=== PATIENT | female | born 1980 | race American Indian/Alaskan Native ===

== ENCOUNTER 2018-11-06 08:00 | Outpatient (CLI) | payer OTHER ==
[2018-11-06] MEDS ORDERED: XYLOCAINE TOPICAL 4% TP ONE (08:25)
== END 2018-11-06 08:01 | disposition home or self-care (01) ==
LOC: WOUND 08:00
PROVIDERS: ATTEND Surgery
DX: L97.812 Non-pressure chronic ulcer of other part of right lower leg with fat layer exposed (principal); I87.2 Venous insufficiency (chronic) (peripheral); I10 Essential (primary) hypertension
CPT/HCPCS: 11042; G0463; 99203

== ENCOUNTER 2018-11-13 07:58 | Outpatient (CLI) | payer OTHER | END 2018-11-13 07:59 | disposition home or self-care (01) | LOC: WOUND 07:58 | PROVIDERS: ATTEND Surgery | DX: L97.812 Non-pressure chronic ulcer of other part of right lower leg with fat layer exposed (principal); I10 Essential (primary) hypertension; I87.8 Other specified disorders of veins ==

== ENCOUNTER 2018-11-20 07:59 | Outpatient (CLI) | payer OTHER | END 2018-11-20 08:00 | disposition home or self-care (01) | LOC: WOUND 07:59 | PROVIDERS: ATTEND Surgery | DX: L97.812 Non-pressure chronic ulcer of other part of right lower leg with fat layer exposed (principal); I87.2 Venous insufficiency (chronic) (peripheral); I10 Essential (primary) hypertension ==

== ENCOUNTER 2018-11-27 08:06 | Outpatient (CLI) | payer OTHER ==
[2018-11-27] MEDS ORDERED: XYLOCAINE TOPICAL 4% TP ONE (09:00)
== END 2018-11-27 08:07 | disposition home or self-care (01) ==
LOC: WOUND 08:06
PROVIDERS: ATTEND Surgery
DX: L97.812 Non-pressure chronic ulcer of other part of right lower leg with fat layer exposed (principal); I87.2 Venous insufficiency (chronic) (peripheral); I10 Essential (primary) hypertension

== ENCOUNTER 2018-12-04 08:02 | Outpatient (CLI) | payer OTHER ==
[2018-12-04] MEDS ORDERED: XYLOCAINE TOPICAL 4% TP ONE (09:00)
== END 2018-12-04 08:03 | disposition home or self-care (01) ==
LOC: WOUND 08:02
PROVIDERS: ATTEND Surgery
DX: L97.812 Non-pressure chronic ulcer of other part of right lower leg with fat layer exposed (principal); I87.2 Venous insufficiency (chronic) (peripheral); I10 Essential (primary) hypertension

== ENCOUNTER 2018-12-11 07:56 | Outpatient (CLI) | payer OTHER ==
[2018-12-11] MEDS ORDERED: XYLOCAINE TOPICAL 4% TP ONE (08:30)
== END 2018-12-11 07:57 | disposition home or self-care (01) ==
LOC: WOUND 07:56
PROVIDERS: ATTEND Surgery
DX: L97.812 Non-pressure chronic ulcer of other part of right lower leg with fat layer exposed (principal); I87.2 Venous insufficiency (chronic) (peripheral); I10 Essential (primary) hypertension

== ENCOUNTER 2018-12-19 08:02 | Outpatient (CLI) | payer OTHER ==
[2018-12-19] MEDS ORDERED: XYLOCAINE TOPICAL 4% TP ONE (08:30)
== END 2018-12-19 08:03 | disposition home or self-care (01) ==
LOC: WOUND 08:02
PROVIDERS: ATTEND Surgery
DX: I87.311 Chronic venous hypertension (idiopathic) with ulcer of right lower extremity (principal); L97.812 Non-pressure chronic ulcer of other part of right lower leg with fat layer exposed; I87.8 Other specified disorders of veins

== ENCOUNTER 2018-12-25 08:01 | Outpatient (CLI) | payer OTHER | END 2018-12-25 08:02 | disposition home or self-care (01) | LOC: WOUND 08:01 | PROVIDERS: ATTEND Surgery | DX: I87.311 Chronic venous hypertension (idiopathic) with ulcer of right lower extremity (principal); L97.812 Non-pressure chronic ulcer of other part of right lower leg with fat layer exposed; I87.8 Other specified disorders of veins ==

== ENCOUNTER 2019-01-01 08:02 | Outpatient (CLI) | payer OTHER ==
[2019-01-01] MEDS ORDERED: XYLOCAINE TOPICAL 4% TP ONE (08:30)
[2019-01-01] MEDS ORDERED: SILVER NITRATE TP ONE (08:30)
== END 2019-01-01 08:03 | disposition home or self-care (01) ==
LOC: WOUND 08:02
PROVIDERS: ATTEND Surgery
DX: I87.311 Chronic venous hypertension (idiopathic) with ulcer of right lower extremity (principal); L97.812 Non-pressure chronic ulcer of other part of right lower leg with fat layer exposed; I87.8 Other specified disorders of veins
CPT/HCPCS: 97597

== ENCOUNTER 2019-01-15 08:07 | Outpatient (CLI) | payer OTHER | END 2019-01-15 08:08 | disposition home or self-care (01) | LOC: WOUND 08:07 | PROVIDERS: ATTEND Surgery | DX: I87.311 Chronic venous hypertension (idiopathic) with ulcer of right lower extremity (principal); L97.828 Non-pressure chronic ulcer of other part of left lower leg with other specified severity; I10 Essential (primary) hypertension | CPT/HCPCS: 99213; G0463 ==

== ENCOUNTER 2021-01-22 06:32 | Day surgery (SDC) | payer BC, OTHER ==
--- NOTE | 2021-01-20 10:33 | Anesthesia Consultation ---
<MAYTE LAUREN - Last Filed: 01/20/21 10:28> Anesthesia Consult and Med Hx Date of service: 01/22/21 - Airway Anesthetic Teeth Evaluation: Poor, Chipped ROM Head & Neck: Adequate Mental/Hyoid Distance: Inadequate Mallampati Class: Class II Intubation Access Assessment: Probably Good - Pulmonary Exam CTA: Yes - Pre-Operative Health Status ASA Pre-Surgery Classification: ASA3 Proposed Anesthetic Plan: General - Pulmonary Hx Smoking: No Hx Respiratory Symptoms: No SOB: No Hx Sleep Apnea: No - Cardiovascular System Hx Hypertension: Yes Hx Heart Attack/AMI: No Hx Angina: No Hx Valvular Heart Disease: No Hx Heart Murmur: No - Central Nervous System Hx Neuromuscular Disorder: No Hx Seizures: No Hx Psychiatric Problems: No - Gastrointestinal Hx Gastroesophageal Reflux Disease: No - Endocrine Hx Renal Disease: No Hx Liver Disease: No Hx Insulin Dependent Diabetes: No Hx Non-Insulin Dependent Diabetes: No Hx Thyroid Disease: No - Other Systems Hx Alcohol Use: Yes (Weekends) Hx Cancer: No Hx Obesity: Yes (BMI- 39.9kg) - Additional Comments Anesthesia Medical History Comments: Patient has Hx. of PONV <SALENA PANDYA - Last Filed: 01/22/21 09:37> Anesthesia Consult and Med Hx - Additional Comments Anesthesia Medical History Comments: Examined immediately prior to procedure. No change in health since seen in preassessment. Consented for preop TAP block for post op analgesia.
[2021-01-20 10:38] LABS: Basophils % (Auto) 0.7 % (0.0-1.8); Eosinophils # (Auto) 0.2 K/mm3 (0.0-0.4); Eosinophils % (Auto) 3.5 % (0.0-4.3); Hematocrit 36.3 % (30.3-42.9); Hemoglobin 12.1 gm/dl (10.1-14.3); Lymphocytes # (Auto) 2.9 K/mm3 (1.2-5.4); Lymphocytes % (Auto) 44.9 % (13.4-35.0); Mean Corpuscular HGB Conc 34 % (30-34); Mean Corpuscular Volume 90 fl (79-97); Monocytes # (Auto) 0.5 K/mm3 (0.0-0.8); Monocytes % (Auto) 8.1 % (0.0-7.3); Platelet Count 433 K/mm3 (140-440); Red Blood Count 4.05 M/mm3 (3.65-5.03); Red Cell Distribution Width 14.2 % (13.2-15.2)
[2021-01-20 10:40] LABS: Blood Urea Nitrogen 10 mg/dL (7-17); Calcium 9.1 mg/dL (8.4-10.2); Hemolysis Index 9
[2021-01-20 10:48] LABS: BUN/Creatinine Ratio 20
[~2021-01-22 06:32] MED LIST: ACETAMINOPHEN 500 MG TAB PO SCH; CELECOXIB 200 MG CAP PO NR; GABAPENTIN 300 MG CAP PO NR; LACTATED RINGERS 1,000 ML IV SCH; MIDAZOLAM 2 MG/2 ML INJ IV NR; SCOPOLAMINE TRANSDERMAL PATCH 72 HR TD NR
[2021-01-22] MEDS ORDERED: BACTERIOSTATIC SODIUM CHLORIDE 0.9% 30 ML VIAL INFILTRATI ONE (06:47)
[2021-01-22] MEDS ORDERED: fentaNYL 100 MCG/2 ML INJ ONE (08:37)
[2021-01-22] MEDS ORDERED: LIDOCAINE MPF (2%) 20 MG/1 ML VIAL 5 ML ONE (08:37)
[2021-01-22] MEDS ORDERED: ROCURONIUM 50 MG/5 ML INJ IV ONE ×2 (08:37→10:18)
[2021-01-22] MEDS ORDERED: propofoL 200 MG/20 ML VIAL IV ONE (08:39)
[2021-01-22] MEDS ORDERED: ceFAZolin/Water 2 GM/20 ML 2 GM/20 ML SYRINGE IV ONE (08:40)
[2021-01-22] MEDS ORDERED: ceFAZolin/STERILE WATER 2 GM/20 ML SYRINGE IV NR (09:00)
[2021-01-22] MEDS ORDERED: ONDANSETRON 4 MG/2 ML INJ ONE (09:36)
[2021-01-22] MEDS ORDERED: KETAMINE/STERILE WATER 50 MG/ML SYRINGE ONE (09:36)
[2021-01-22] MEDS ORDERED: dexAMETHasone 20 MG/5 ML VIAL ONE (09:36)
--- NOTE | 2021-01-22 09:37 | Anesthesia Day of Surgery ---
Anesthesia Day of Surgery - Day of Surgery Patient Examined: Yes Patient H&P Reviewed: Yes Patient is NPO: Yes
[2021-01-22] MEDS ORDERED: HYDROmorphone 1 MG/1 ML INJ IV PRN (10:00)
[2021-01-22] MEDS ORDERED: ONDANSETRON 4 MG/2 ML INJ IV PRN (10:00)
[2021-01-22] MEDS ORDERED: oxyCODONE /ACETAMINOPHEN 5-325MG TAB PO PRN (10:00)
[2021-01-22] MEDS ORDERED: SODIUM CHLORIDE 0.9% IRR 1,000 ML BOTTLE IR ONE (10:15)
[2021-01-22] MEDS ORDERED: WATER FOR IRRIG STERILE 2000 ML IR ONE (10:15)
[2021-01-22] MEDS ORDERED: HYDROmorphone 1 MG/1 ML INJ ONE (10:20)
[2021-01-22] MEDS ORDERED: SODIUM CHLORIDE 0.9% IRRIG SOLN 2000 ML IR ONE (11:40)
--- NOTE | 2021-01-22 13:35 | Operative Report ---
Operative Report Operative Report: Date of surgery: January 22, 2021 Admitting diagnosis: Endometrial polyps, peritoneal adhesions. Postoperative diagnoses: Same. Procedure: Laparoscopically assisted vaginal hysterectomy, cystoscopy. Surgeon: Yenifer Alexis MD Anesthesiologist: Jennie Kendall MD Hay Stacker: DEVIN Anesthesia: Gen. anesthesia EBL: 300 mL Complications: None Findings:Intraperitoneally, the fallopian tubes were noted to have been disrupted at a prior surgical session. The midportion of the anterior aspect of the uterus was adherent to the anterior parietal peritoneum. There were further adhesions within the cul-de-sac binding the sigmoid to the adjacent parietal peritoneum. Both ovaries were grossly normal. The uterus was bulky in size. The liver on the undersurface of the diaphragm were grossly normal. There were no other abnormalities observed within the peritoneal cavity. The vulva vagina and cervix were grossly normal. Procedure in details: The patient was taken to the operating room and was given a general anesthesia. The patient was then put in the lithotomy position and prepped in the vulva vagina and abdomen. The drapes were placed. A timeout was done. With the go ahead from the motorcycle repair shop supervisor, an indwelling Alfaro catheter was inserted. The cervix was stabilized with a single-tooth tenaculum forceps and an acorn,. At the navel, a stab incision was made. The Veress needle was inserted, making sure to point the tip of this instrument into the free hollow of the pelvis. The Veress needle was initially aspirated and no blood was drawn. The Veress needle was then flushed through with a small quantity of sterile normal saline without any resistance. The general peritoneal cavity was thereafter insufflated with 3.5 L of carbon dioxide. A 5 mm port with its trocar were inserted making sure again to point the tip of this instrument towards the free hollow of the pelvis. The laparoscope confirmed successful access to the peritoneal cavity subsequently. 2 additional 5 mm ports were placed one for each flank under guidance with the laparoscope. A general examination of the peritoneal cavity was done. The findings are reported above. The endoscopic ligation was used to excise the remnants of the fallopian tubes from its attachments to the ovaries all the way to the uterine cornua. The broad ligament was then divided from the round ligaments and close to the lateral aspects of the uterus all the way to the top of the cervix. This was done for both sides. The J-hook Bovie was used to thermally coagulate the utero peritoneal flap over the cervix. This allowed the bladder to be displaced distally with the blunt probe. The procedure continued vaginally. The acorn cannula was removed. A circumferential incision was made into the nucleus sharp on the external cervix distal to the palpated reflection of the urinary bladder. The bladder was then bluntly dissected off of the cervix using the Kitner. The anterior colpotomy was easily established allowed and retractors replaced within the opening. The posterior colpotomy was established by cutting into the posterior cul-de-sac with the Champagne's scissors. The blade of the weighted vaginal speculum was placed into the posterior colpotomy. The Enseal was then used to thermally coagulate and divide the remaining attachments of the uterus to the pelvic sidewall. Specimen was removed and secured for histopathology. The vagina was sewn with a running suture of #0 Vicryl having achieved satisfactory hemostasis. The vaginal cuff had to be revised twice to achieve hemostasis as well as to free the sigmoid from the vaginal cuff. The vagina vault was subsequently closed with figure of 8 suture of 0 Vicryl. Cystoscopy was done. The patient was given 50 mg of methylene blue. Both ureteric orifices were seen with urine ejecting from both. The urine was clear. There was no injuries to the bladder wall. Intraperitoneally, there was no extravasation of urine into the peritoneal cavity. There was no bleeding within the peritoneal cavity. The pneumoperitoneum was deflated after inspecting the access points using the laparoscope. All instruments were withdrawn. The 3 stab incisions were sealed with Dermabond. All sponges and instruments were accounted for. There were no complications. The estimated blood loss was 3 mL. The patient tolerated the procedure well and was transferred to the recovery room in very good condition.
--- NOTE | 2021-01-22 16:16 | Post Anesthesia Evaluation ---
- Post Anesthesia Evaluation Patient Participated: Yes Airway Patent: Yes Stable Respiratory Function: Yes Nausea/Vomiting: No Temp > 96.8F: Yes Pain Manageable: Yes Adequeate Hydration: Yes Anesthesia Complications: No
[2021-01-22 20:55] VITALS: BP 118/68
== END 2021-01-22 06:33 | disposition home or self-care (01) ==
LOC: OR 06:32
PROVIDERS: ATTEND Obstetrics & Gynecology
DX: N84.0 Polyp of corpus uteri (principal); K66.0 Peritoneal adhesions (postprocedural) (postinfection); N70.91 Salpingitis, unspecified; N92.5 Other specified irregular menstruation; Z20.822 Contact with and (suspected) exposure to COVID-19; I10 Essential (primary) hypertension; E66.9 Obesity, unspecified; Z68.39 Body mass index [BMI] 39.0-39.9, adult; Z79.899 Other long term (current) drug therapy; Z98.890 Other specified postprocedural states
CPT/HCPCS: 36415; 52000; 58552; 80048; 84703; 85025; 86850; 86900; 86901; 88307; A4217; J0690; J1100; J1170; J2250; J2405; J2704; J3010; J3490; J7120; U0003